=== PATIENT | male | born 1985 | race Hispanic/Latino ===

== ENCOUNTER 2019-06-15 21:48 | Emergency (ER) | payer SELFPAY ==
[2019-06-15] MEDS ORDERED: TOBRAMYCIN SULF 0.3% OPTH OINT ONE (22:22)
--- NOTE | 2019-06-15 22:27 | ER ---
Nurse's Notes [facility] Name: Elvin Hallman Age: 34 yrs Sex: Male : 1985 Arrival Date: 06/15/2019 Time: 21:51 Bed 18 Private MD: Diagnosis: Cutaneous abscess of head [any part, except face]-right upper eyelid Presentation: 06/15 22:04 Presenting complaint: Patient states: abscess to right upper eye lid since 2 months lp1 ago; States has become more painful, larger. Transition of care: patient was not received from another setting of care. Onset of symptoms was June 15, 2019. Risk Assessment: Do you want to hurt yourself or someone else? Patient reports no desire to harm self or others. Initial Sepsis Screen: Does the patient meet any 2 criteria? No. Patient's initial sepsis screen is negative. Does the patient have a suspected source of infection? No. Patient's initial sepsis screen is negative. Care prior to arrival: None. 22:04 Method Of Arrival: Ambulatory lp1 22:04 Acuity: BOBBY 4 lp1 Triage Assessment: 22:00 General: Appears in no apparent distress. uncomfortable, Behavior is calm, cooperative, cc3 appropriate for age. Pain: Complains of pain in right upper eyelid. Historical: - Allergies: 22:00 No Known Allergies; cc3 - Immunization history:: Adult Immunizations not up to date. - Family history:: not pertinent. - Social history:: Smoking status: Patient/guardian denies using tobacco, never smoked. - Ebola Screening: : No symptoms or risks identified at this time. Screenin:00 Abuse screen: Denies threats or abuse. Denies injuries from another. Nutritional cc3 screening: No deficits noted. Tuberculosis screening: No symptoms or risk factors identified. Fall Risk Ambulatory Aid- None/Bed Rest/Nurse Assist (0 pts). Gait- Normal/Bed Rest/Wheelchair (0 pts) Mental Status- Oriented to own ability (0 pts). Assessment: 22:00 General: Appears in no apparent distress. uncomfortable, Behavior is calm, cooperative, cc3 appropriate for age. Pain: Complains of pain in right upper eyelid. Neuro: Level of Consciousness is awake, alert, obeys commands, Oriented to person, place, time, situation, Appropriate for age. Cardiovascular: Denies chest pain, Capillary refill < 3 seconds Patient's skin is warm and dry. Respiratory: Airway is patent Respiratory effort is even, unlabored, Respiratory pattern is regular, symmetrical. GI: Abdomen is round non-distended. : No signs and/or symptoms were reported regarding the genitourinary system. EENT: Reports pain in right upper eyelid. Derm: Skin is intact, is healthy with good turgor, Skin is pink, warm \T\ dry. normal. Musculoskeletal: Circulation, motion, and sensation intact. Range of motion: intact in all extremities. 23:30 Reassessment: Patient appears in no apparent distress at this time. Patient and/or cc3 family updated on plan of care and expected duration. Pain level reassessed. Patient is alert, oriented x 3, equal unlabored respirations, skin warm/dry/pink. Dr. Alexander discharged the patient home with prescriptions given. No IV cannula in situ. Patient left ER vitally stable and ambulatory with his family. No valuables left in the patient's room. Patient states feeling better. Vital Signs: 22:05 BP 128 / 66; Pulse 84; Resp 18; Temp 98.3(TE); Pulse Ox 97% on R/A; Weight 99.79 kg; lp1 Height 5 ft. 8 in. (172.72 cm); Pain 9/10; 23:20 BP 121 / 67; Pulse 85; Resp 17 S; Pulse Ox 97% on R/A; cc3 22:05 Body Mass Index 33.45 (99.79 kg, 172.72 cm) lp1 ED Course: 21:51 Patient arrived in ED. es 21:59 Ofe Robins is Primary Nurse. cc3 22:00 Patient has correct armband on for positive identification. Bed in low position. Call cc3 light in reach. Side rails up X 1. Pulse ox on. NIBP on. 22:05 Triage completed. lp1 22:05 Arm band placed on left wrist. lp1 22:15 Bo Alexander MD is Attending Physician. freda 22:25 Mikie Daugherty MD is Referral Physician. freda 23:05 Mikie Daugherty MD is Referral Physician. freda 23:30 No provider procedures requiring assistance completed. Patient did not have IV access cc3 during this emergency room visit. Administered Medications: 22:25 Drug: Tobramycin Ointment (0.3 %) 0.5 inches Route: Ophthalmic; Site: right eye; cc3 23:00 Follow up: Response: No adverse reaction cc3 22:31 Not Given (Duplicate Order): Tobramycin Ointment (0.3 %) 0.5 inches Ophthalmic once [facility] 23:10 Drug: Doxycycline 200 mg Route: PO; cc3 23:30 Follow up: Response: No adverse reaction cc3 23:10 Drug: Bactrim (160 mg-800 mg (DS) 1 tablet Route: PO; cc3 23:30 Follow up: Response: No adverse reaction cc3 Outcome: 22:26 Discharge ordered by MD. [facility] 23:06 Discharge ordered by . [facility] 23:30 Patient left the ED. cc3 23:30 Discharged to home ambulatory, with family. cc3 23:30 Condition: stable 23:30 Discharge instructions given to patient, Instructed on discharge instructions, follow up and referral plans. medication usage, Demonstrated understanding of instructions, follow-up care, medications, Prescriptions given X 3. Signatures: Bo Alexander MD MD cha Salyer, Edna es Pena, Laura, RN RN [facility] Ofe Robins cc3 Corrections: (The following items were deleted from the chart) 22:06 Immunization history: Adult Immunizations up to date, [address] 22:06 Social history: Smoking status: Patient/guardian denies using tobacco, [address] 22:06 Ebola Screening: No symptoms or risks identified at this time [address] 22:06 Allergies: No Known Allergies; [address] 22:06 Home Meds: None; [address] 22:06 PMHx: None; [address] 22:06 PSHx: None; [address] : 22:16 Family history: not pertinent, freda barba
--- NOTE | 2019-06-15 22:28 | EDPHYS ---
Physician Documentation [facility] Name: Elvin Hallman Age: 34 yrs Sex: Male : 1985 Arrival Date: 06/15/2019 Time: 21:51 Bed 18 Private MD: ED Physician Bo Alexander HPI: 06/15 23:02 This 34 yrs old Male presents to ER via Ambulatory with complaints of Eye freda Problem. 23:02 The patient is experiencing pain, redness, to the right eye. Onset: The freda symptoms/episode began/occurred 1 week(s) ago. Duration: the symptoms are continuous. Aggravated by blinking, closing eye, pressure, Alleviated by cold application. Associated signs and symptoms: Pertinent positives: None. Pertinent negatives: None. Patient does not utilize any form of vision correction. Severity of symptoms: At their worst the symptoms were moderate in the emergency department the symptoms are unchanged. The patient has not experienced similar symptoms in the past. Historical: - Allergies: 22:00 No Known Allergies; cc3 - Immunization history:: Adult Immunizations not up to date. - Family history:: not pertinent. - Social history:: Smoking status: Patient/guardian denies using tobacco, never smoked. - Ebola Screening: : No symptoms or risks identified at this time. ROS: 23:02 Constitutional: Negative for fever, chills, and weight loss, ENT: Negative for injury, freda pain, and discharge, Neck: Negative for injury, pain, and swelling, Cardiovascular: Negative for chest pain, palpitations, and edema, Respiratory: Negative for shortness of breath, cough, wheezing, and pleuritic chest pain, Abdomen/GI: Negative for abdominal pain, nausea, vomiting, diarrhea, and constipation, Back: Negative for injury and pain, : Negative for injury, bleeding, discharge, and swelling, MS/Extremity: Negative for injury and deformity, Skin: Negative for injury, rash, and discoloration, Neuro: Negative for headache, weakness, numbness, tingling, and seizure, Psych: Negative for depression, anxiety, suicide ideation, homicidal ideation, and hallucinations, Allergy/Immunology: Negative for hives, rash, and allergies, Endocrine: Negative for neck swelling, polydipsia, polyuria, polyphagia, and marked weight changes, Hematologic/Lymphatic: Negative for swollen nodes, abnormal bleeding, and unusual bruising. 23:02 Eyes: Positive for pain, swelling, of the right upper eyelid and iris of right eye. Exam: 23:02 Constitutional: This is a well developed, well nourished patient who is awake, alert, freda and in no acute distress. Head/Face: Normocephalic, atraumatic. ENT: Nares patent. No nasal discharge, no septal abnormalities noted. Tympanic membranes are normal and external auditory canals are clear. Oropharynx with no redness, swelling, or masses, exudates, or evidence of obstruction, uvula midline. Mucous membranes moist. Neck: Trachea midline, no thyromegaly or masses palpated, and no cervical lymphadenopathy. Supple, full range of motion without nuchal rigidity, or vertebral point tenderness. No Meningismus. Chest/axilla: Normal chest wall appearance and motion. Nontender with no deformity. No lesions are appreciated. Cardiovascular: Regular rate and rhythm with a normal S1 and S2. No gallops, murmurs, or rubs. Normal PMI, no JVD. No pulse deficits. Respiratory: Lungs have equal breath sounds bilaterally, clear to auscultation and percussion. No rales, rhonchi or wheezes noted. No increased work of breathing, no retractions or nasal flaring. Abdomen/GI: Soft, non-tender, with normal bowel sounds. No distension or tympany. No guarding or rebound. No evidence of tenderness throughout. Back: No spinal tenderness. No costovertebral tenderness. Full range of motion. Skin: Warm, dry with normal turgor. Normal color with no rashes, no lesions, and no evidence of cellulitis. MS/ Extremity: Pulses equal, no cyanosis. Neurovascular intact. Full, normal range of motion. Neuro: Awake and alert, GCS 15, oriented to person, place, time, and situation. Cranial nerves II-XII grossly intact. Motor strength 5/5 in all extremities. Sensory grossly intact. Cerebellar exam normal. Normal gait. Psych: Awake, alert, with orientation to person, place and time. Behavior, mood, and affect are within normal limits. 23:02 Eyes: Periorbital structures: cellulitis, erythema, swelling, that is mild, on the right upper eyelid and right iris, Pupils: no acute changes, equal, round, and reactive to light and accomodation, Extraocular movements: intact throughout, Conjunctiva: normal, no acute changes, Corneas: are normal, no acute changes, Sclera: no appreciated abnormality, no acute changes, Lids and lashes: edema, of the right eye, erythema. Vital Signs: 22:05 BP 128 / 66; Pulse 84; Resp 18; Temp 98.3(TE); Pulse Ox 97% on R/A; Weight 99.79 kg; lp1 Height 5 ft. 8 in. (172.72 cm); Pain 9/10; 23:20 BP 121 / 67; Pulse 85; Resp 17 S; Pulse Ox 97% on R/A; cc3 22:05 Body Mass Index 33.45 (99.79 kg, 172.72 cm) lp1 MDM: 22:24 Data reviewed: vital signs, nurses notes. freda Administered Medications: 22:25 Drug: Tobramycin Ointment (0.3 %) 0.5 inches Route: Ophthalmic; Site: right eye; cc3 23:00 Follow up: Response: No adverse reaction 3 22:31 Not Given (Duplicate Order): Tobramycin Ointment (0.3 %) 0.5 inches Ophthalmic once [facility] 23:10 Drug: Doxycycline 200 mg Route: PO; cc3 23:30 Follow up: Response: No adverse reaction 3 23:10 Drug: Bactrim (160 mg-800 mg (DS) 1 tablet Route: PO; cc3 23:30 Follow up: Response: No adverse reaction cc3 Disposition: 06/15/19 23:06 Discharged to Home. Impression: Cutaneous abscess of head [any part, except face] - right upper eyelid. - Condition is Stable. - Discharge Instructions: Skin Abscess, Stye, Skin Abscess, [id number]. - Prescriptions for Tobrex 0.3 % Ophthalmic ointment - apply 1 inch ribbon by OPHTHALMIC route 3 times per day; 3.5 gram. Doxycycline Hyclate 100 mg Oral Tablet - take 1 tablet by ORAL route every 12 hours; 20 tablet. Bactrim DS 800- 160 mg Oral Tablet - take 1 tablet by ORAL route every 12 hours for 10 days; 20 tablet. - Medication Reconciliation Form, Thank You Letter, Antibiotic Education, Prescription Opioid Use form. - Follow up: Private Physician; When: 2 - 3 days; Reason: Recheck today's complaints, Continuance of care, Re-evaluation by your physician. Follow up: Mikie Daugherty MD; When: 2 - 3 days; Reason: Recheck today's complaints, Re-evaluation by your physician. - Problem is new. - Symptoms have improved. Signatures: Bo Alexander MD MD cha Pena, Laura, RN RN lp1 Ofe Robins cc3 Corrections: (The following items were deleted from the chart) 22:16 The patient is experiencing pain, The patient sustained freda freda : 22:16 Onset: The symptoms/episode began/occurred just prior to arrival, [facility] freda :29 22:16 Duration: the symptoms are continuous, [facility] freda : 22:16 Aggravated by blinking, closing eye, Alleviated by nothing, freda frdea 22: 22:16 Associated signs and symptoms: Pertinent positives: None. Pertinent negatives: freda None. [facility] : 22:16 Patient does not utilize any form of vision correction [facility] : 22:16 The patient has not experienced similar symptoms in the past, [facility] : 22:16 This 34 yrs old Male presents to ER via Ambulatory with complaints of freda Eye Problem. [facility] 22:06 Immunization history: Adult Immunizations up to date, [address] 22:06 Social history: Smoking status: Patient/guardian denies using tobacco, [address] 22:06 Ebola Screening: No symptoms or risks identified at this time [address] 22:06 Allergies: No Known Allergies; [address] 22:06 Home Meds: None; [address] 22:06 PMHx: None; [address] 22:06 PSHx: None; [address] :30 22:16 Family history: not pertinent, [facility] :30 22:16 Constitutional: Negative for fever, chills, and weight loss, ENT: Negative for freda injury, pain, and discharge, Neck: Negative for injury, pain, and swelling, Cardiovascular: Negative for chest pain, palpitations, and edema, Respiratory: Negative for shortness of breath, cough, wheezing, and pleuritic chest pain, Abdomen/GI: Negative for abdominal pain, nausea, vomiting, diarrhea, and constipation, Back: Negative for injury and pain, : Negative for injury, bleeding, discharge, and swelling, MS/Extremity: Negative for injury and deformity, Skin: Negative for injury, rash, and discoloration, Neuro: Negative for headache, weakness, numbness, tingling, and seizure, Psych: Negative for depression, anxiety, suicide ideation, homicidal ideation, and hallucinations, Allergy/Immunology: Negative for hives, rash, and allergies, Endocrine: Negative for neck swelling, polydipsia, polyuria, polyphagia, and marked weight changes, Hematologic/Lymphatic: Negative for swollen nodes, abnormal bleeding, and unusual bruising, freda 22:30 22:16 Eyes: Positive for pain, freda freda 22:30 22:16 Constitutional: This is a well developed, well nourished patient who is awake, freda alert, and in no acute distress. Head/Face: Normocephalic, atraumatic. ENT: Nares patent. No nasal discharge, no septal abnormalities noted. Tympanic membranes are normal and external auditory canals are clear. Oropharynx with no redness, swelling, or masses, exudates, or evidence of obstruction, uvula midline. Mucous membranes moist. Neck: Trachea midline, no thyromegaly or masses palpated, and no cervical lymphadenopathy. Supple, full range of motion without nuchal rigidity, or vertebral point tenderness. No Meningismus. Chest/axilla: Normal chest wall appearance and motion. Nontender with no deformity. No lesions are appreciated. Cardiovascular: Regular rate and rhythm with a normal S1 and S2. No gallops, murmurs, or rubs. Normal PMI, no JVD. No pulse deficits. Respiratory: Lungs have equal breath sounds bilaterally, clear to auscultation and percussion. No rales, rhonchi or wheezes noted. No increased work of breathing, no retractions or nasal flaring. Abdomen/GI: Soft, non-tender, with normal bowel sounds. No distension or tympany. No guarding or rebound. No evidence of tenderness throughout. Back: No spinal tenderness. No costovertebral tenderness. Full range of motion. Male : Normal genitalia with no discharge or lesions. Skin: Warm, dry with normal turgor. Normal color with no rashes, no lesions, and no evidence of cellulitis. MS/ Extremity: Pulses equal, no cyanosis. Neurovascular intact. Full, normal range of motion. Neuro: Awake and alert, GCS 15, oriented to person, place, time, and situation. Cranial nerves II-XII grossly intact. Motor strength 5/5 in all extremities. Sensory grossly intact. Cerebellar exam normal. Normal gait. Psych: Awake, alert, with orientation to person, place and time. Behavior, mood, and affect are within normal limits. [facility] 22:16 Eyes: Periorbital structures: appear normal, no acute changes, Pupils: no acute [facility] changes, equal, round, and reactive to light and accomodation, Extraocular movements: intact throughout, Conjunctiva: normal, no acute changes, Corneas: are normal, no acute changes, Sclera: no appreciated abnormality, no acute changes, Anterior chamber: normal, no acute changes, Lids and lashes: fb under upper lid, removed. [facility] 22:15 Patient medically screened. [facility] 22:16 Foreign Body Removal: dust, from the left eye, conjunctiva by using a [facility] cotton-tipped swab, Dressing: none, The patient tolerated the removal well, [facility] 22:26 06/15/2019 22:26 Discharged to Home. Impression: Retained foreign body in left [facility] upper eyelid - removed. Condition is Stable. Forms are Medication Reconciliation Form, Thank You Letter, Antibiotic Education, Prescription Opioid Use. Follow up: Mikie Daugherty; When: 1 - 2 days; Reason: Recheck today's complaints, Re-evaluation by your physician. Problem is new. Symptoms have improved. [facility] :30 23:06 06/15/2019 23:06 Discharged to Home. Impression: Cutaneous abscess of head [any cc3 part, except face] - right upper eyelid. Condition is Stable. Prescriptions for Tobrex 0.3 % Ophthalmic ointment - apply 1 inch ribbon by OPHTHALMIC route 3 times per day; 3.5 gram. and Forms are Medication Reconciliation Form, Thank You Letter, Antibiotic Education, Prescription Opioid Use. Follow up: Private Physician; When: 2 - 3 days; Reason: Recheck today's complaints, Continuance of care, Re-evaluation by your physician. Follow up: Mikie Daugherty; When: 2 - 3 days; Reason: Recheck today's complaints, Re-evaluation by your physician. Problem is new. Symptoms have improved. [facility]
[2019-06-15] MEDS ORDERED: SMZ./TMP. 800/160 MG TABLET ONE (23:14)
[2019-06-15] MEDS ORDERED: DOXYCYCLINE 100 MG CAP PO ONE (23:14)
== END 2019-06-15 23:30 | disposition home or self-care (01) ==
LOC: ER 21:48
DX: H00.031 Abscess of right upper eyelid (principal)
CPT/HCPCS: 99283